=== PATIENT | female | born 1975 | race Caucasian/White ===

== ENCOUNTER 2023-04-08 07:54 | Emergency (ER) | payer SELFPAY ==
[2023-04-08 08:30] LABS: SARS-CoV-2 Antigen Rapid Res Positive (Negative)
[2023-04-08 09:21] LABS: Absolute Lymphocytes (CBC) 0.9 K/uL (0.7-4.9); Hematocrit 42.4 % (36.0-45.0); Lymphocytes % 17.7 % (15.3-44.8); MPV 9.3 fL (7.6-11.3); Platelets 188 thou/uL (152-406); RBC Red Blood Cell Count 4.81 M/uL (3.86-4.86)
--- NOTE | 2023-04-08 09:22 | RAD REPORT ---
EXAM DESCRIPTION: [place] Single View04/08/2023 9:17 am CLINICAL HISTORY: CHEST PAIN COMPARISON: No comparisons TECHNIQUE: Portable AP view of the chest. FINDINGS: The lungs are clear. No pneumothorax or effusion. The cardiomediastinal contours are unre markable. IMPRESSION: No acute cardiopulmonary process.
[2023-04-08] MEDS ORDERED: HYDROCODONE/APAP 5/325 MG TAB ONE (09:25)
[2023-04-08] MEDS ORDERED: ASPIRIN 81 MG CHEWABLE TABLET ONE (09:25)
[2023-04-08] MEDS ORDERED: DIAZEPAM 5 MG TABLET ONE (09:25)
--- OUTSIDE RECORDS SUMMARY | 2023-04-08 09:25 | XMS REPORT | Continuity of Care Document ---
:[address] [facility] t Address [address] [place] [address] [address] [place] [address] Care Team Providers Name Role Phone Unavailable Unavailable Unavailable Payers Payer Name Policy Type Policy Number Effective Date Expiration Date S yasmeen CIGNA C1 [id number] [facility] CIG[employer] C1 [id number] [facility] Problems Condition Condition Condition Status Onset Resolution Last Treating Co mments Source Name Details Category Date Date Treatment Clinician Date [id number] Multiple Problem Active Healt h joint pain [facility] [id number] Other Problem Active Health fatigue [facility] [id number] Other Problem Active Health depression [facility] Allergies, Adverse Reactions, Alerts This patient has no known allergies or adverse reactions. Social History Social Habit Start Date Stop Date Quantity Comments Source Sex Assigned At [facility] History of Tobacco Current Smoker [facility] Smoking Status Start Date Stop Date Source Current Smoker 2020-09-13 00:00:00 [facility] Medications Ordered Filled Start Stop Current Ordering Indication Dosage Frequency Signature Comments Components Source Medication Medication Date Date Medication? Clinician (SIG) Name Name Lexapro 10 Lexapro 10 No QD Lexapro 10 MG MG MG Lexapro 10 Lexapro 10 No QD Lexapro 10 MG MG MG Vital Signs Vital Name Observation Time Observation Value Comments Source height 2020-09-13 13:30:00 65 [in_i] [facility] weight 2020-09-13 13:30:00 121 [lb_av] [facility] bmi 2020-09-13 13:30:00 20.13 kg/m2 [facility] Procedures This patient has no known procedures. Encounters Start End Encounter Admission Attending Care Care Encounter Source Date/Time Date/Time Type Type Clinicians Facility Department ID 2021-06-26 Outpatient [facility] [id number] Health 13:21:02 0630 [facility] 2021-06-26 Outpatient [facility] [id number] Health 12:53:30 0419 [facility] 2021-06-26 Outpatient [facility] [id number] Health 12:52:41 0415 [facility] 2020-09-14 2020-09-14 (LAB) Lab [facility] [id number] [facility] 00:00:00 00:00:00 [facility] 2020-09-13 2020-09-13 LAST DIPPER Problem [facility] [id number] [facility] 00:00:00 00:00:00 Focused [facility] Results This patient has no known results.
[2023-04-08 09:29] LABS: Potassium 3.6 mEq/L (3.5-5.1); Troponin High Sensitivity 4.8 pg/mL (<58.9)
--- NOTE | 2023-04-08 10:04 | RAD REPORT ---
EXAM DESCRIPTION: CT - Chest For Pe Angio - 04/08/2023 9:15 am CLINICAL HISTORY: covid, cp, sob COMPARISON: Chest Single View dated 04/08/2023 TECHNIQUE: Thin axial CT images of the chest were obtained following administration of 100 mL Isovue 370 IV contrast. Multiplanar reconstructions, and maximum intensity projection reconstructions were generated and reviewed. Exam utilizes a protocol for optimal evaluation of pulmonary arterial tree. All CT scans are performed using dose optimization technique as appropriate and may include automated exposure control or mA/KV adjustment according to patient size. FINDINGS: Pulmonary arteries are normal. No emboli or other suspicious finding. No acute or signific ant aorta findings. No mass or infiltrate in the lung parenchyma. Severe apical predominant centrilobular emphysematous c hanges. No pleural thickening or pleural effusion. No pneumothorax. No abnormal mediastinal or hilar masses or lymphadenopathy seen. No chest wall mass or abnormal axill iary lymphadenopathy. IMPRESSION: No evidence of acute central pulmonary emboli. No other acute pulmonary process. Severe centrilobular emphysematous changes.
--- NOTE | 2023-04-08 10:20 | EDPHYS ---
Physician Documentation [facility] Name: Rae Davila Age: 48 yrs Sex: Female : 1975 Arrival Date: 04/08/2023 Time: 07:54 Bed 19 Private MD: ED Physician Shaheen Smallwood HPI: 04/08 08:02 This 48 yrs old Female presents to ER via Unassigned with complaints of Fever, Nausea, snw Diarrhea. 08:02 The patient reports fever, not measured (subjective). Onset: The symptoms/episode snw began/occurred suddenly, 2 day(s) ago, and became persistent. Associated signs and symptoms: Pertinent positives: decreased appetite, diarrhea, headache, myalgias, sore throat. Severity of symptoms: At their worst the symptoms were moderate. The patient has experienced a previous episode. had flu immunization 2 weeks ago. 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 Smoking status: Patient reports the use of cigarette tobacco products, smokes one-half pack cigarettes per day. ROS: 08:02 Eyes: Negative for injury, pain, redness, and discharge, snw 08:02 Neck: Negative for injury, pain, and swelling, Cardiovascular: Negative for chest pain, palpitations, and edema, 08:02 Abdomen/GI: Negative for abdominal pain, nausea, vomiting, diarrhea, and constipation, Back: Negative for injury and pain, : Negative for injury, bleeding, discharge, and swelling, MS/Extremity: Negative for injury and deformity, Skin: Negative for injury, rash, and discoloration, Neuro: Negative for headache, weakness, numbness, tingling, and seizure, Psych: Negative for depression, anxiety, suicide ideation, homicidal ideation, and hallucinations, 08:02 Constitutional: Positive for body aches, fatigue, fever, malaise, poor PO intake, 08:02 ENT: Positive for sore throat, 08:02 Respiratory: Positive for cough, shortness of breath, Exam: 08:04 Head/Face: Normocephalic, atraumatic. Eyes: Pupils equal round and reactive to light, snw extra-ocular motions intact. Lids and lashes normal. Conjunctiva and sclera are non-icteric and not injected. Cornea within normal limits. Periorbital areas with no swelling, redness, or edema. ENT: Nares patent. No nasal discharge, no septal abnormalities noted. Tympanic membranes are normal and external auditory canals are clear. Oropharynx with no redness, swelling, or masses, exudates, or evidence of obstruction, uvula midline. Mucous membranes moist. Neck: Trachea midline, no thyromegaly or masses palpated, and no cervical lymphadenopathy. Supple, full range of motion without nuchal rigidity, or vertebral point tenderness. No Meningismus. Chest/axilla: Normal chest wall appearance and motion. Nontender with no deformity. No lesions are appreciated. 08:04 Respiratory: Lungs have equal breath sounds bilaterally, clear to auscultation and percussion. No rales, rhonchi or wheezes noted. No increased work of breathing, no retractions or nasal flaring. Abdomen/GI: Soft, non-tender, with normal bowel sounds. No distension or tympany. No guarding or rebound. No evidence of tenderness throughout. Back: No spinal tenderness. No costovertebral tenderness. Full range of motion. Skin: Warm, dry with normal turgor. Normal color with no rashes, no lesions, and no evidence of cellulitis. MS/ Extremity: Pulses equal, no cyanosis. Neurovascular intact. Full, normal range of motion. Neuro: Awake and alert, GCS 15, oriented to person, place, time, and situation. Cranial nerves II-XII grossly intact. Motor strength 5/5 in all extremities. Sensory grossly intact. Cerebellar exam normal. Normal gait. Psych: Awake, alert, with orientation to person, place and time. Behavior, mood, and affect are within normal limits. 08:04 Constitutional: The patient appears alert, awake, uncomfortable, 08:04 Cardiovascular: Rate: tachycardic, Rhythm: regular, Heart sounds: normal, Edema: is not appreciated, Vital Signs: 08:01 BP 126 / 91; Pulse 119; Resp 18; Temp 98.7; Pulse Ox 98% on R/A; Weight 54.43 kg; iw Height 5 ft. 5 in. ; 10:33 BP 127 / 81; Pulse 108; Resp 18; Pulse Ox 98% on R/A; db 08:01 Body Mass Index 19.97 (54.43 kg, 165.1 cm) iw MDM: 08:05 Differential diagnosis: viral Infection, bacterial infection. Data reviewed: vital snw signs, nurses notes. 08:05 Patient medically screened. snw 08:30 Counseling: I had a detailed discussion with the patient and/or guardian regarding the snw historical points, exam findings, and any diagnostic results supporting the discharge/admit diagnosis, lab results, the need for outpatient follow up, for definitive care, to return to the emergency department if symptoms worsen or persist or if there are any questions or concerns that arise at home, smoking cessation. Special discussion: Based on the history and exam findings, there is no indication for further emergent testing or inpatient evaluation. I discussed with the patient/guardian the need to see the primary care provider for further evaluation of the symptoms. 09:12 ED course: as Pt is a smoker, + for covid, and tachycardic I will test for PE. snw 04/08 08:02 Order name: Flu; Complete Time: 08:52 snw 04/08 08:02 Order name: SARS RAPID; Complete Time: 08:39 snw 04/08 08:51 Order name: Basic Metabolic Panel; Complete Time: 09:34 snw 04/08 08:51 Order name: CBC with Diff; Complete Time: 09:27 snw 04/08 08:51 Order name: Troponin HS; Complete Time: 09:34 snw 04/08 08:51 Order name: XRAY Chest (1 view); Complete Time: 09:25 snw 04/08 08:51 Order name: CT Chest For PE Angio; Complete Time: 10:16 snw 04/08 08:51 Order name: EKG; Complete Time: 08:52 snw 04/08 08:51 Order name: Cardiac monitoring; Complete Time: 09:23 snw 04/08 08:51 Order name: EKG - Nurse/Tech; Complete Time: 09:25 snw 04/08 08:51 Order name: IV Saline Lock; Complete Time: 08:58 snw 04/08 08:51 Order name: Labs collected and sent; Complete Time: 08:58 snw 04/08 08:51 Order name: O2 Per Protocol; Complete Time: : snw 04/08 08:51 Order name: O2 Sat Monitoring; Complete Time: : snw EC: Rate is 96 beats/min. Rhythm is regular. QRS [place] is Normal. PA interval is normal. QRS snw interval is normal. QT interval is normal. Clinical impression: NSR w/ Non-specific ST/T Changes. Administered Medications: : Drug: HYDROcodone-acetaminophen PO 5 mg-325 mg 1 tabs PO once Route: PO; db 10:38 Follow up: Response: No adverse reaction db 09:22 Drug: Diazepam PO 10 mg PO once Route: PO; db 10:37 Follow up: Response: No adverse reaction db 09:23 Drug: Aspirin PO Chewable Tablet 324 mg PO once; 81 mg tablets x 4 Route: PO; db 10:38 Follow up: Response: No adverse reaction db 10:20 Drug: Ketorolac IVP 15 mg IVP once Route: IVP; Site: right forearm; db 10:37 Follow up: Response: No adverse reaction db Disposition: :24 I was immediately available on-site in the Emergency Department for consultation in the ms3 care of the patient. Disposition Summary: 04/08/23 10:19 Discharge Ordered Notes: Location: Home snw Condition: Stable snw Diagnosis - SARS-associated coronavirus as the cause of diseases classified elsewhere snw - Emphysema, unspecified snw Followup: snw - With: Emergency Department - When: As needed - Reason: Worsening of condition Followup: snw - With: Private Physician - When: 2 - 3 days - Reason: Recheck today's complaints, Continuance of care, Re-evaluation by your physician Discharge Instructions: - Discharge Summary Sheet snw - Aspirin and Your Heart snw - COVID-19 snw - 10 Things You Can Do to Manage Your COVID-19 Symptoms at Home - [facility] (12/14/2020) snw - COPD and Physical Activity snw - Living With COPD snw Forms: - Work release form snw - Medication Reconciliation Form snw - Thank You Letter snw - Antibiotic Education snw - Prescription Opioid Use snw - Patient Portal Instructions snw - Leadership Thank You Letter snw Prescriptions: - Zyrtec 10 mg Oral Tablet - take 1 tablet ORAL route once daily As needed; 20 tablet; Refills: 0, Product snw Selection Permitted - Prednisone 20 mg Oral Tablet - take 2 tablets ORAL route once daily for 5 days; 10 tablet; Refills: 0, Product snw Selection Permitted - Pepcid 20 mg Oral Tablet - take 1 tablet ORAL route once daily; 20 tablet; Refills: 0, Product Selection snw Permitted - Zithromax 500 mg Oral Tablet - take 1 tablet ORAL route once daily for 5 days; 5 tablet; Refills: 0, Product snw Selection Permitted Signatures: Dispatcher [employer] EDMS Janelle Terrazas, PACKAGE REINSPECTOR-C PACKAGE REINSPECTOR-Csnw Ronit Cabezas RN RN iw Shaheen Smallwood DO DO ms3 Colette Brenner RN RN db Corrections: (The following items were deleted from the chart) 08:04 08:03 PSHx: None; [facility]
--- NOTE | 2023-04-08 10:20 | ER ---
Nurse's Notes [facility] Name: Rae Davila Age: 48 yrs Sex: Female : 1975 Arrival Date: 04/08/2023 Time: 07:54 Bed 19 Private MD: Diagnosis: SARS-associated coronavirus as the cause of diseases classified elsewhere;Emphysema, unspecified Presentation: 04/08 08:01 Chief complaint: Patient states: achy,fever, headache, SOB, nausea, diarrhea X 2 days. iw Coronavirus screen: Client presents with at least one sign or symptom that may indicate coronavirus-19. Ebola Screen: Patient negative for fever greater than or equal to 101.5 degrees Fahrenheit, and additional compatible Ebola Virus Disease symptoms Patient denies exposure to infectious person. Patient denies travel to an Ebola-affected area in the 21 days before illness onset. No symptoms or risks identified at this time. Initial Sepsis Screen: Does the patient meet any 2 criteria? No. Patient's initial sepsis screen is negative. Does the patient have a suspected source of infection? No. Patient's initial sepsis screen is negative. Risk Assessment: Do you want to hurt yourself or someone else? Patient reports no desire to harm self or others. Onset of symptoms was April 04, 2023. 08:01 Method Of Arrival: Ambulatory iw 08:01 Acuity: BREANNA 4 iw 08:59 Acuity: BREANNA 3 iw Triage Assessment: 10:37 General: Appears in no apparent distress. comfortable, Behavior is calm, cooperative. db GI: Reports nausea. STAFFING MGR: 10:33 LMP N/A - control method, Not db Historical: - Allergies: 08:03 No Known Allergies; iw - Home Meds: 08:03 None [Active]; iw - PMHx: 08:03 None; iw - PSHx: 08:03 hysterectomy; iw - Social history:: Smoking status: Patient reports the use of cigarette tobacco products, smokes one pack cigarettes per day. Smoking status: Patient reports the use of cigarette tobacco products, smokes one-half pack cigarettes per day. Screenin:25 [facility] ED Fall Risk Assessment (Adult) History of falling in the last 3 months, db including since admission No falls in past 3 months (0 pts) Score/Fall Risk Level 0 - 2 = Low Risk Oriented to surroundings, Maintained a safe environment. Abuse screen: Denies threats or abuse. Denies injuries from another. Nutritional screening: No deficits noted. Tuberculosis screening: No symptoms or risk factors identified. Assessment: 08:32 Reassessment: Patient appears in no apparent distress at this time. Patient and/or db family updated on plan of care and expected duration. Pain level reassessed. Patient is alert, oriented x 3, equal unlabored respirations, skin warm/dry/pink. 10:25 Reassessment: Patient appears in no apparent distress at this time. Patient and/or db family updated on plan of care and expected duration. Pain level reassessed. Patient is alert, oriented x 3, equal unlabored respirations, skin warm/dry/pink. Reassessment: FEELING BETTER. BODY ACHES. General: Appears in no apparent distress. comfortable, Behavior is calm, cooperative. Pain: Complains of pain in chest. Neuro: Level of Consciousness is awake, alert, obeys commands, Oriented to person, place, time, situation, . Respiratory: Airway is patent Respiratory effort is even, unlabored, Respiratory pattern is regular, symmetrical. GI: Abdomen is flat, non-distended. Vital Signs: 08:01 BP 126 / 91; Pulse 119; Resp 18; Temp 98.7; Pulse Ox 98% on R/A; Weight 54.43 kg; iw Height 5 ft. 5 in. ; 10:33 BP 127 / 81; Pulse 108; Resp 18; Pulse Ox 98% on R/A; db 08:01 Body Mass Index 19.97 (54.43 kg, 165.1 cm) iw ED Course: 07:57 Patient arrived in ED. rg4 07:57 Janelle Terrazas FNP-C is PHCP. snw 07:57 Shaheen Smallwood DO is Attending Physician. snw 08:03 Triage completed. iw 08:04 Arm band placed on. iw 08:32 Colette Brenner, RN is Primary Nurse. db 08:32 Patient has correct armband on for positive identification. Placed in gown. Call light db in reach. Side rails up X 1. 08:58 Initial lab(s) drawn, by me, sent to lab. Inserted saline lock: 20 gauge in left iw forearm, using aseptic technique. Blood collected. 09:16 CT Chest For PE Angio In Process Unspecified. EDMS 09:19 XRAY Chest (1 view) In Process Unspecified. EDMS 10:25 Provided Education on: DISCHARGE. db 10:25 No provider procedures requiring assistance completed. IV discontinued, intact, db bleeding controlled, No redness/swelling at site. Administered Medications: 09:22 Drug: HYDROcodone-acetaminophen PO 5 mg-325 mg 1 tabs PO once Route: PO; db 10:38 Follow up: Response: No adverse reaction db 09:22 Drug: Diazepam PO 10 mg PO once Route: PO; db 10:37 Follow up: Response: No adverse reaction db 09:23 Drug: Aspirin PO Chewable Tablet 324 mg PO once; 81 mg tablets x 4 Route: PO; db 10:38 Follow up: Response: No adverse reaction db 10:20 Drug: Ketorolac IVP 15 mg IVP once Route: IVP; Site: right forearm; db 10:37 Follow up: Response: No adverse reaction db Medication: 10:25 VIS not applicable for this client. db Outcome: 10:19 Discharge ordered by MD. snw 10:25 Discharged to home ambulatory, db 10:25 Condition: stable 10:25 Discharge instructions given to patient, Instructed on discharge instructions, follow up and referral plans. Prescriptions given X 4, 10:38 Patient left the ED. db Signatures: Dispatcher [employer] aJnelle Do, MEDICAL IMAGING TECHNOLOGIST-C MEDICAL IMAGING TECHNOLOGIST-Csnw Ronit Cabezas, RN Diandra Fung4 Colette Brenner RN RN db Corrections: (The following items were deleted from the chart) 08:04 08:03 PSHx: None; [facility]
[2023-04-08] MEDS ORDERED: KETOROLAC 30 MG/ML INJ ONE (10:33)
[2023-04-08 11:05] VITALS: TEMP 98.7; O2SAT 98
[2023-04-08 11:07] VITALS: BP 127/81
--- NOTE | 2023-04-11 14:22 | EKG ---
Test Date: 2023-04-08 Test Time: 09:22:43 Coagulating Operator: DAGMAR MEASUREMENT RESULTS: Intervals: Rate: 96 MD: 132 QRSD: 76 QT: 338 QTc: 427 [facility]: P: 73 MD: 132 QRS: 74 T: 75 INTERPRETIVE STATEMENTS: Normal sinus rhythm Normal ECG No previous ECG available for comparison Electronically Signed On 04-11-23 14:12:04 TOLL TICKET CLERK by Kiran Jacques
== END 2023-04-08 10:38 | disposition home or self-care (01) ==
LOC: ER 07:54
DX: U07.1 COVID-19 (principal); J43.9 Emphysema, unspecified; F17.210 Nicotine dependence, cigarettes, uncomplicated
CPT/HCPCS: 36415; 71045; 71275; 80048; 84484; 85025; 87804; 87811; 93005; 96374; 99284; Q9967